=== PATIENT | male | born 1940 | race Caucasian/White ===

== ENCOUNTER 2018-02-18 08:21 | Emergency (ER) | payer MEDICARE, OTHER ==
[~2018-02-18] VITALS: Ht 175.3 cm; Wt 81.6 kg
[~2018-02-18 08:21] MED LIST: ASP81CT PO; ASPRIN; FENO135C PO; GLMP4T PO; ROSI1TAB25 PO; ROSU10TA12 PO; [UNRECOGNIZED DRUG - REMARK]
--- NOTE | 2018-02-18 10:34 | ED Cough/URI ---
General Chief Complaint: Cough/Cold/Flu Symptoms Stated Complaint: COLD LIKE SYMPTOMS Nursing Triage Note: PT PRESENTS TO ED WITH COMPLAINTS OF SOA X 2 DAYS REPORTS COUGH/COLD/SINUS PRESSURE/AND PARRA. Source: patient, family Exam Limitations: no limitations History of Present Illness Date Seen by Provider: Feb 18, 2018 Time Seen by Provider: 10:32 Initial Comments The patient is a 77-year-old white male who presents with a history of cough and congestion for 2 days. He reports that this got worse last night. He has not had any fever. His became concerned and insisted that he come here. Timing/Duration: yesterday, getting worse Severity/Quality: productive cough Allergies and Home Medications Allergies Coded Allergies: No Known Allergies (Unverified Allergy, Unknown, 06/17/05) Home Medications Aspirin 81 Mg Chew, 81 MG PO DAILY, (Reported) Fenofibrate 135 Mg Capsule.dr, 1 EACH PO DAILY, (Reported) Glimepiride 4 Mg Tablet, 1 TAB PO BID, (Reported) Rosiglitazone/Metformin Hcl 1 Each Tablet, 1 EACH PO BID, (Reported) Rosuvastatin Calcium 10 Mg Tablet, 1 EACH PO DAILY, (Reported) Patient Home Medication List Home Medication List Reviewed: Yes Review of Systems Review of Systems Constitutional: see HPI EENTM: nose congestion Respiratory: cough Cardiovascular: no symptoms reported Gastrointestinal: no symptoms reported Genitourinary: no symptoms reported Musculoskeletal: no symptoms reported Skin: no symptoms reported Psychiatric/Neurological: No Symptoms Reported Hematologic/Lymphatic: No Symptoms Reported Immunological/Allergic: no symptoms reported Past Hdennxx-Juiaua-Ywpeat Hx Patient Social History Alcohol Use: Denies Use Recreational Drug Use: No Smoking Status: Never a Smoker Recent Foreign Travel: No Contact w/Someone Who Travel: No Recent Infectious Disease Expo: No Recent Hopitalizations: Yes Physical Abuse: No Sexual Abuse: No Mistreated: No Fear: No Past Medical History Surgeries: Yes ([place], right TKR twice, tonsillectomy) Gallbladder, Joint Replacement, Tonsillectomy Respiratory: No Cardiac: Yes High Cholesterol Neurological: No Reproductive Disorders: No Genitourinary: Yes (HX OF PROSTATE CA) Prostate Problems Gastrointestinal: No Musculoskeletal: No Endocrine: Yes Diabetes, Non-Insulin dep Cancer: Yes Prostate Psychosocial: No Blood Disorders: No Physical Exam Vital Signs - First Documented Capillary Refill : Less Than 3 Seconds Height: 5'9.00" Weight: 180lbs. oz. 81.711113cd; BMI Method:Stated General Appearance: WD/WN, no apparent distress HEENT: normal ENT inspection Neck: full range of motion Respiratory: chest non-tender, lungs clear, normal breath sounds, no respiratory distress, no accessory muscle use, respiratory distress Cardiovascular: normal peripheral pulses, regular rate, rhythm, no edema, no gallop, no JVD, no murmur Gastrointestinal: normal bowel sounds, non tender, soft, no organomegaly, no pulsatile mass Extremities: normal range of motion, non-tender, normal inspection, no pedal edema, no calf tenderness, normal capillary refill, pelvis stable Neurologic/Psychiatric: machine packager II-XII nml as tested, no motor/sensory deficits, alert, normal mood/affect, oriented x 3 Skin: normal color, warm/dry, cyanosis, cool, diaphoresis, damp Lymphatic: no adenopathy, axilla node tender (R), axilla node tender (L), inguinal node tender (R), inguinal node tender (L) Progress/Results/Core Measures Suspected Sepsis Recent Fever Within 48 Hours: No Infection Criteria Present: None New/Unexplained Altered Menta: No Sepsis Screen: No Definite Risk SIRS Temperature:97.3 Pulse: 57 Respiratory Rate: 16 Blood Pressure 142 /83 Mean: 102 Results/Orders My Orders Orders - ERASMO HAYNES MD Chest 1 View, Ap/Pa Only (02/18/18 10:30) Vital Signs/I&O 02/18/18 02/18/18 09:43 09:43 Temp 97.3 Pulse 57 Resp 16 B/P (MAP) 142/83 (102) Pulse Ox 92 O2 Delivery Room Air Room Air Capillary Refill : Less Than 3 Seconds Blood Pressure Mean: 102 Departure Communication (Admissions) 1121 chest x-ray as interpreted by me as negative Impression Primary Impression: URI Disposition: 01 HOME, SELF-CARE Condition: Stable/Unchanged Departure-Patient Inst. Decision time for Depature: 11:19 Referrals: BARTOLO DUONG DO (PCP/Family) Primary Care Physician Patient Instructions: Cough, Runny Nose, and the Common Cold (DC) Add. Discharge Instructions: All discharge instructions reviewed with patient and/or family. Voiced understanding. Rest, plenty of liquids, Tylenol or ibuprofen for fever, Cough medicine such as Robitussin if needed to control cough ERASMO HAYNES MD Feb 18, 2018 10:34
--- NOTE | 2018-02-18 11:28 | Diagnostic Imaging Report ---
INDICATION: Productive cough and dyspnea. COMPARISON: 09/12/2009. DISCUSSION: Single portable upright view of the chest was obtained. Mild cardiomegaly. No failure. Antecedent granulomatous disease is noted within the right upper lobe. No focal consolidation, pleural fluid, or pneumothorax. No osseous abnormality. IMPRESSION: 1. Mild cardiomegaly without failure. Dictated by: Dictated on workstation # [id number]
[2018-02-18 11:54] VITALS: BP 142/90
== END 2018-02-18 11:53 | disposition home or self-care (01) ==
LOC: EDUNIT# 08:21 → ER 08:23
DX: J06.9 Acute upper respiratory infection, unspecified (principal); E78.00 Pure hypercholesterolemia, unspecified; E11.9 Type 2 diabetes mellitus without complications; Z85.46 Personal history of malignant neoplasm of prostate; Z79.82 Long term (current) use of aspirin; Z79.4 Long term (current) use of insulin; Z90.89 Acquired absence of other organs; Z96.651 Presence of right artificial knee joint
CPT/HCPCS: 71045

== ENCOUNTER → 2020-11-24 | Outpatient (CLI) | payer MEDICARE, OTHER ==
[2020-11-24 13:20] LABS: BASOPHILS # (AUTO) 0.1 10^3/uL (0.0-0.1); BASOPHILS % (AUTO) 1 % (0-10); EOSINOPHILS # (AUTO) 0.2 10^3/uL (0.0-0.3); EOSINOPHILS % (AUTO) 1 % (0-10); HEMATOCRIT 47 % (40-54); HEMOGLOBIN 15.6 g/dL (13.3-17.7); LYMPHOCYTES # (AUTO) 6.2 10^3/uL (1.0-4.0); LYMPHOCYTES % (AUTO) 37 % (12-44); MEAN CORPUSCULAR HEMOGLOBIN 31 pg (25-34); MEAN CORPUSCULAR HGB CONC 34 g/dL (32-36); MEAN CORPUSCULAR VOLUME 92 fL (80-99); MEAN PLATELET VOLUME 10.2 fL (9.0-12.2); MONOCYTES # (AUTO) 1.7 10^3/uL (0.0-1.0); MONOCYTES % (AUTO) 10 % (0-12); NEUTROPHILS # (AUTO) 8.7 10^3/uL (1.8-7.8); NEUTROPHILS % (AUTO) 51 % (42-75); PLATELET COUNT 271 10^3/uL (130-400)
[2020-11-24 13:23] LABS: ALBUMIN 4.1 GM/DL (3.2-4.5)
[2020-11-24 13:24] LABS: POTASSIUM 4.1 MMOL/L (3.6-5.0)
[2020-11-24 13:25] LABS: CALCIUM 10.9 MG/DL (8.5-10.1)
[2020-11-24 13:26] LABS: TOTAL PROTEIN 7.9 GM/DL (6.4-8.2)
[2020-11-24 13:28] LABS: BILIRUBIN,TOTAL 2.9 MG/DL (0.1-1.0)
[2020-11-24 13:30] LABS: CREATININE SERUM 1.14 MG/DL (0.60-1.30)
[2020-11-24 13:37] LABS: BAND NEUTROPHILS 1 %; EOSINOPHILS % (MANUAL) 3 %; LYMPHOCYTES % (MANUAL) 31 %; MONOCYTES % (MANUAL) 7 %; NEUTROPHILS % (MANUAL) 58 %; RBC MORPH NORMAL; TOXIC GRANULATION/VACUOLAZATIO 1+
--- NOTE | 2020-11-24 13:41 | Diagnostic Imaging Report ---
EXAMINATION: Left elbow at 1:15 p.m. INDICATION: Cellulitis. Three views were obtained. There are no prior studies available for comparison. There is no fracture, dislocation or acute bony abnormality evident. The lateral view does show an irregular 1.4 cm calcific density in the soft tissues anterior to the distal humerus. There are also a few small calcific densities in the soft tissues medial to the medial epicondyle of the distal humerus. I suspect these findings are long-standing in nature. The posterior fat-pad of the elbow joint is elevated. This does suggest that there is a joint effusion. In addition there does seem to be soft tissue edema along the posterior aspect of the elbow joint. IMPRESSION: 1. There is no acute bony abnormality noted. 2. The elevation of the posterior fat-pad does suggest that there is a joint effusion present. There also appears to be soft tissue edema. This may correspond to the patient's clinical diagnosis of cellulitis. 3. Attempts to convey the results of this exam to Yancy Johnson APRN were unsuccessful.. Dictated by: Dictated on workstation # [id number]
== END ==
LOC: LAB 12:52
PROVIDERS: ATTEND Nurse Practitioner Family
DX: L03.114 Cellulitis of left upper limb (principal)
CPT/HCPCS: 36415; 73080; 80053; 85007; 85027

== ENCOUNTER → 2022-02-20 | Outpatient (CLI) | payer MEDICARE, OTHER ==
[2022-02-20 11:09] LABS: BASOPHILS # (AUTO) 0.1 10^3/uL (0.0-0.1); BASOPHILS % (AUTO) 1 % (0-10); EOSINOPHILS # (AUTO) 0.4 10^3/uL (0.0-0.3); EOSINOPHILS % (AUTO) 2 % (0-10); HEMATOCRIT 45 % (40-54); HEMOGLOBIN 15.1 g/dL (13.3-17.7); LYMPHOCYTES # (AUTO) 6.8 10^3/uL (1.0-4.0); LYMPHOCYTES % (AUTO) 43 % (12-44); MEAN CORPUSCULAR HEMOGLOBIN 30 pg (25-34); MEAN CORPUSCULAR HGB CONC 33 g/dL (32-36); MEAN CORPUSCULAR VOLUME 89 fL (80-99); MEAN PLATELET VOLUME 10.3 fL (9.0-12.2); MONOCYTES # (AUTO) 1.9 10^3/uL (0.0-1.0); MONOCYTES % (AUTO) 12 % (0-12); NEUTROPHILS # (AUTO) 6.6 10^3/uL (1.8-7.8); NEUTROPHILS % (AUTO) 42 % (42-75); PLATELET COUNT 283 10^3/uL (130-400); WHITE BLOOD COUNT 15.9 10^3/uL (4.3-11.0)
[2022-02-20 11:45] LABS: EOSINOPHILS % (MANUAL) 3 %; LYMPHOCYTES % (MANUAL) 15 %; MONOCYTES % (MANUAL) 10 %; NEUTROPHILS % (MANUAL) 42 %; RBC MORPH NORMAL; REACTIVE LYMPHOCYTES 30 %; TOXIC GRANULATION/VACUOLAZATIO 1+
== END ==
LOC: LAB 10:52
PROVIDERS: ATTEND Family Medicine
DX: D72.829 Elevated white blood cell count, unspecified (principal)
CPT/HCPCS: 36415; 85007; 85027